=== PATIENT | male | born 1940 | race Caucasian/White ===

== ENCOUNTER → 2017-04-20 | Outpatient (CLI) | payer MEDICARE, OTHER ==
[2017-04-20 11:29] LABS: HCT 40.5 % (39.0-53.0); HGB 13.8 gm/dL (13.0-17.5); MCH 30.3 pg (25.0-35.0); Mean Platelet Volume 7.2; Platelet Count 260 k/uL (150-450); RBC 4.55 m/uL (4.30-5.90); RDW 13.2 % (11.5-15.5); WBC 11.3 k/uL (3.8-10.6)
[2017-04-20 11:59] LABS: Anion Gap 10 mmol/L; Blood Urea Nitrogen 21 mg/dL (9-20); Carbon Dioxide 31 mmol/L (22-30); Chloride 100 mmol/L (98-107); Sodium 141 mmol/L (137-145)
== END | disposition home or self-care (01) ==
LOC: LABPAT 10:47
PROVIDERS: ATTEND Internal Medicine Interventional Cardiology
DX: Z01.812 Encounter for preprocedural laboratory examination (principal); R07.9 Chest pain, unspecified
CPT/HCPCS: 80051; 82565; 84520; 85027

== ENCOUNTER 2017-04-28 06:06 | Day surgery (SDC) | payer MEDICARE, OTHER ==
[2017-04-25 10:58] VITALS: BMI 30.5
[2017-04-28] MEDS ORDERED: ALPRAZolam 0.5 MG TAB PO PRN (06:22)
[2017-04-28] MEDS ORDERED: NITROGLYCERIN SL TABS 0.4 MG TAB SUBLINGUAL PRN (06:22)
[2017-04-28] MEDS ORDERED: ASPIRIN 325 MG TAB PO STA (06:22)
[2017-04-28] MEDS ORDERED: SODIUM CHLORIDE 0.9% 1,000 ML in EMPTY BAG 1 BAG IV ONE (06:22)
[2017-04-28] MEDS ORDERED: ALPRAZolam 0.25 MG TAB PO PRN (06:22)
[2017-04-28] MEDS ORDERED: ATORVASTATIN 80 MG TAB PO STA (06:22)
[2017-04-28 06:45] VITALS: PULSE 49; TEMP 98.2
[2017-04-28] MEDS ORDERED: IV FLUID CONTINUATION 1,000 ML IV ONE (08:11)
[2017-04-28] MEDS ORDERED: MIDAZOLAM 2 MG/2 ML VIAL IV ONE (08:15)
[2017-04-28] MEDS ORDERED: LIDOCAINE 2% INJ 20 MG/ML SQ ONE ×2 (08:20→08:31)
[2017-04-28] MEDS: VERAPAMIL SYRINGE (5 MG/10 ML) INTRAARTER ONE ×2 (08:22→08:30)
[2017-04-28] MEDS ORDERED: IOHEXOL 350 MG/ML 125ML BOTTLE INJ ONE (08:57)
[2017-04-28] MEDS ORDERED: RX INFO: IV CONTRAST WAS GIVEN 1 EACH MISC MISCELLANE PRN (09:02)
[2017-04-28] MEDS ORDERED: SODIUM CHLORIDE 0.9% 1,000 ML IV SCH (09:15)
--- NOTE | 2017-04-28 09:45 | CC ---
CARDIAC CATHETERIZATION REPORT DATE OF SERVICE: 04/28/2017 PERFORMING PHYSICIAN: Harinder Hurley MD, confectionery cooker. PROCEDURE PERFORMED: Selective right and left coronary angiogram. INDICATION: This is a pleasant 77-year-old gentleman who was experiencing chest discomfort and underwent myocardial perfusion imaging stress test showed ischemia. In view of that, a heart catheterization was recommended. APPROACH: 1. Right radial artery. 2. Right common femoral artery. COMPLICATION: None. LEVEL OF SEDATION: Moderate with sedation length of 38 minutes. 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 Initially I cannulated the right radial artery, but I was unable to access the heart from the right radial artery in view of the severe tortuosity. At that point, I did abort the radial procedure and I accessed the right common femoral artery. I did place a 6-Pakistani sheath in the right common femoral artery. After that, I did selective right and left coronary angiogram using JR4 and JL6 catheter. The procedure was completed without any complication. SELECTIVE CORONARY ANGIOGRAM: 1. The RCA is a large caliber vessel and it is a dominant vessel. The proximal RCA appeared to be angiographically normal. The mid RCA is normal as well. The RCA distally has a plaque about 30%. It is calcified plaque. The RCA distally bifurcates into PDA and PLV branches. The PDA branch has mild disease only and the PLV branch is angiographically normal. 2. The left main is angiographically normal. It bifurcates into the left circumflex and left anterior descending artery. 3. The left circumflex is a large caliber vessel and it is a nondominant vessel. The left circumflex system is angiographically normal. 4. Left anterior descending artery; the proximal LAD has mild eccentric plaque about 30%. The mid LAD has a plaque about 30% to 40% by the bifurcation of a large diagonal branch. The LAD distally is angiographically normal. 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 POSTPROCEDURE MANAGEMENT: Medical treatment. MMODL / IJN: [id number] /
[2017-04-28 09:50] VITALS: RESP 18
[2017-04-28] MEDS ORDERED: hydrALAZINE HCL 20 MG/ML 1 ML VIAL IVP STA (12:38)
[2017-04-28] MEDS ORDERED: ACETAMINOPHEN TAB 500 MG TAB PO STA (14:29)
[2017-04-28 15:39] VITALS: BP 160/72
== END 2017-04-28 16:06 | disposition home or self-care (01) ==
LOC: CATHCVL 06:06
PROVIDERS: ATTEND Internal Medicine Interventional Cardiology
DX: R94.39 Abnormal result of other cardiovascular function study (principal); R07.89 Other chest pain; I25.10 Atherosclerotic heart disease of native coronary artery without angina pectoris; I10 Essential (primary) hypertension; I48.0 Paroxysmal atrial fibrillation; E78.5 Hyperlipidemia, unspecified; R00.1 Bradycardia, unspecified; I70.0 Atherosclerosis of aorta; Z79.899 Other long term (current) drug therapy; Z88.2 Allergy status to sulfonamides; Z79.01 Long term (current) use of anticoagulants
CPT/HCPCS: 93454; 84132; C1894 ×3; C1769 ×3; J2001; J2250; J0360; J1644; Q9967

== ENCOUNTER → 2018-02-21 | Outpatient (CLI) | payer MEDICARE, OTHER ==
[2018-02-21 10:50] LABS: Basophils % (A) 0 %; Eosinophils # (A) 0.2 k/uL (0-0.7); Eosinophils % (A) 3 %; HCT 40.9 % (39.0-53.0); HGB 13.5 gm/dL (13.0-17.5); Lymphocytes # (A) 2.2 k/uL (1.0-4.8); Lymphocytes % (A) 28 %; MCH 29.8 pg (25.0-35.0); MCHC 32.9 g/dL (31.0-37.0); MCV 90.4 fL (80.0-100.0); Monocytes # (A) 0.4 k/uL (0-1.0); Monocytes % (A) 5 %; Neutrophils # (A) 4.9 k/uL (1.3-7.7); Neutrophils % (A) 62 %; Platelet Count 244 k/uL (150-450); RBC 4.52 m/uL (4.30-5.90); RDW 13.7 % (11.5-15.5); WBC 7.9 k/uL (3.8-10.6)
[2018-02-21 16:39] LABS: Albumin 4.3 g/dL (3.80-4.90); Albumin/Globulin Ratio 3.31 (1.20-2.10); Anion Gap 7.8 mmol/L (4.00-12.00); Calcium 9.3 mg/dL (8.7-10.3); Carbon Dioxide 30.2 mmol/L (21.6-31.8); Globulin 1.3 g/dL (1.6-3.3); Potassium 4.3 mmol/L (3.5-5.5); Total Protein 5.6 g/dL (6.2-8.2)
[2018-02-21 16:48] LABS: T4, Free (Free Thyroxine) 1.3 ng/dL (0.80-1.80)
== END ==
LOC: LABWHC1 09:29
PROVIDERS: ATTEND Internal Medicine
DX: Z00.00 Encounter for general adult medical examination without abnormal findings (principal); E78.00 Pure hypercholesterolemia, unspecified; I10 Essential (primary) hypertension; I47.1 Supraventricular tachycardia; I48.0 Paroxysmal atrial fibrillation; G47.33 Obstructive sleep apnea (adult) (pediatric)
CPT/HCPCS: 36415; 80053; 80061; 84439; 84443; 85025

== ENCOUNTER → 2019-11-05 | Outpatient (CLI) | payer MEDICARE, OTHER ==
[2019-11-05 10:10] LABS: Basophils # (A) 0.1 k/uL (0-0.2); Basophils % (A) 1 %; Eosinophils # (A) 0.3 k/uL (0-0.7); Eosinophils % (A) 4 %; HCT 41.7 % (39.0-53.0); HGB 13.3 gm/dL (13.0-17.5); Lymphocytes # (A) 1.8 k/uL (1.0-4.8); Lymphocytes % (A) 26 %; MCH 29.4 pg (25.0-35.0); MCHC 31.8 g/dL (31.0-37.0); MCV 92.3 fL (80.0-100.0); Mean Platelet Volume 7.5; Monocytes # (A) 0.4 k/uL (0-1.0); Monocytes % (A) 5 %; Neutrophils # (A) 4.3 k/uL (1.3-7.7); Neutrophils % (A) 62 %; Platelet Count 238 k/uL (150-450); RBC 4.52 m/uL (4.30-5.90); RDW 13.1 % (11.5-15.5)
[2019-11-05 17:56] LABS: African American GFR (CKD) 93.2 (60.0-200.0); Albumin 4.2 g/dL (3.80-4.90); Anion Gap 7.5 mmol/L (4.00-12.00); BUN/Creat Ratio 18.89 Ratio (12.00-20.00); Calcium 9.1 mg/dL (8.7-10.3); Carbon Dioxide 31.5 mmol/L (21.6-31.8); Chol/HDL Ratio 3.56; Globulin 1.4 g/dL (1.6-3.3); Non-African American GFR(CKD) 80.4 (60.0-200.0); Total Bilirubin 0.9 mg/dL (0.2-1.2); Total Protein 5.6 g/dL (6.2-8.2)
[2019-11-05 18:04] LABS: T4, Free (Free Thyroxine) 1.1 ng/dL (0.80-1.80)
== END | disposition home or self-care (01) ==
LOC: LABWHC1 08:45
PROVIDERS: ATTEND Internal Medicine
DX: Z00.00 Encounter for general adult medical examination without abnormal findings (principal); I48.91 Unspecified atrial fibrillation; I10 Essential (primary) hypertension
CPT/HCPCS: 36415; 80053; 80061; 84439; 84443; 85025

== ENCOUNTER → 2020-11-03 | Outpatient (CLI) | payer MEDICARE, OTHER ==
[2020-11-03 14:53] LABS: Basophils # (A) 0.04 X 10*3/uL (0.00-0.10); Basophils % (A) 0.5 %; Eosinophils # (A) 0.18 X 10*3/uL (0.04-0.35); Eosinophils % (A) 2.4 %; HCT 39.5 % (39.6-50.0); HGB 13.1 g/dL (13.0-17.0); Lymphocytes # (A) 1.67 X 10*3/uL (0.90-5.00); Lymphocytes % (A) 21.9 %; MCH 31.3 pg (27.0-32.0); MCHC 33.2 g/dL (32.0-37.0); MCV 94.5 fL (80.0-97.0); Mean Platelet Volume 10.8 fL (9.5-12.2); Monocytes # (A) 0.46 X 10*3/uL (0.20-1.00); Neutrophils # (A) 5.25 X 10*3/uL (1.80-7.70); Neutrophils % (A) 68.9 %; Platelet Count 267 X 10*3/uL (140-440); RBC 4.18 X 10*6/uL (4.40-5.60); RDW 14.1 % (11.5-14.5); WBC 7.62 X 10*3/uL (4.50-10.00)
[2020-11-03 15:46] LABS: African American GFR (CKD) 92.5 (60.0-200.0); Albumin 4.1 g/dL (3.80-4.90); Albumin/Globulin Ratio 2.16 (1.60-3.17); Chol/HDL Ratio 3.15; Globulin 1.9 g/dL (1.6-3.3); Non-African American GFR(CKD) 79.8 (60.0-200.0); Potassium 3.9 mmol/L (3.5-5.5); Total Bilirubin 0.8 mg/dL (0.2-1.2)
[2020-11-03 15:54] LABS: Prostate Specific Antigen 2.5 ng/mL (0.0-6.5); T4, Free (Free Thyroxine) 1.1 ng/dL (0.80-1.80)
== END | disposition home or self-care (01) ==
LOC: LABWHC1 08:50
PROVIDERS: ATTEND Internal Medicine
DX: Z00.00 Encounter for general adult medical examination without abnormal findings (principal); Z12.5 Encounter for screening for malignant neoplasm of prostate; I10 Essential (primary) hypertension; E78.5 Hyperlipidemia, unspecified
CPT/HCPCS: 36415; 80053; 80061; 84153; 84439; 84443; 85025

== ENCOUNTER → 2021-11-18 | Outpatient (CLI) | payer MEDICARE, OTHER ==
[2021-11-18 23:31] LABS: ALT 17 U/L (10-49); AST 27 U/L (14-35); African American GFR (CKD) 89.7 (60.0-200.0); Albumin 4.2 g/dL (3.8-4.9); Alkaline Phosphatase 80 U/L (41-126); BUN/Creat Ratio 21.13 Ratio (12.00-20.00); Blood Urea Nitrogen 19.4 mg/dL (9.0-27.0); Calcium 9.4 mg/dL (8.7-10.3); Carbon Dioxide 29.4 mmol/L (20.0-27.5); Chloride 103 mmol/L (96-109); Chol/HDL Ratio 3.12 Ratio; Globulin 1.8 g/dL (1.6-3.3); Glucose 97 mg/dL (70-110); Non-African American GFR(CKD) 77.4 (60.0-200.0); Potassium 4.2 mmol/L (3.5-5.5); Sodium 142 mmol/L (135-145); Total Protein 6.1 g/dL (6.2-8.2)
== END ==
LOC: LABWHC1 15:52
PROVIDERS: ATTEND Internal Medicine
DX: Z00.00 Encounter for general adult medical examination without abnormal findings (principal); I10 Essential (primary) hypertension; E78.5 Hyperlipidemia, unspecified
CPT/HCPCS: 36415; 80053; 80061; 84439; 84443; 85025

== ENCOUNTER 2022-01-10 17:25 | Emergency (ER) | payer MEDICARE, OTHER ==
[2022-01-10 17:32] VITALS: TEMP 98.4
[2022-01-10] MEDS ORDERED: PANTOPRAZOLE 40 MG/10 ML VIAL IVP STA (17:52)
--- NOTE | 2022-01-10 17:59 | ED ---
GI Bleed HPI - General Chief complaint: GI Bleed Stated complaint: Poss GI Bleed Time Seen by Provider: 01/10/22 17:33 Source: patient Mode of arrival: ambulatory Limitations: no limitations - History of Present Illness Initial comments: Patient is a pleasant 81-year-old male presenting to the emergency room with complaints of sudden onset of rectal bleeding with dark red blood and occasional clots earlier this afternoon. He denies any abdominal pain, nausea or vomiting. He is complaining of mild lower back discomfort which he believes bega n today as well. He denies any signs and symptoms of anemia including but not limited to any chest pain, shortness of breath, headache, dizziness, lethargy or weakness. He denies any fevers or chills. He denies any previous episodes of gastrointestinal bleeding. He is on Xarelto for a history of atrial fibrillation which he is taking as prescribed. In addition to atrial fibrillation history is a past medical history significant for degenerative joint disease, hypertension and hyperlipidemia. - Related Data Home Medications Medication Instructions Recorded Confirmed Lovastatin [Mevacor] 20 mg PO DAILY 05/03/15 04/25/17 Vit C/E/Zn/Coppr/Lutein/Zeaxan 1 cap PO BID 01/05/17 04/28/17 [Preservision Areds 2 Softgel] Rivaroxaban [Xarelto] 15 mg PO DAILY 01/08/17 04/25/17 Aspirin 325 mg PO ONCE 04/28/17 04/28/17 Previous Rx's Medication Instructions Recorded amLODIPine [Norvasc] 10 mg PO DAILY #30 tab 01/08/17 hydroCHLOROthiazide [Hydrodiuril] 50 mg PO DAILY #30 tab 01/08/17 lisinopriL [Zestril] 20 mg PO BID #60 tab 01/08/17 Metoprolol Tartrate [Lopressor] 12.5 mg PO DAILY #0 04/28/17 Allergies Allergy/AdvReac Type Severity Reaction Status Date / Time Sulfa (Sulfonamide Allergy Unknown Verified 04/25/17 11:02 Antibiotics) tobramycin Allergy See Comment Verified 04/25/17 11:02 Review of Systems ROS Statement: Those systems with pertinent positive or pertinent negative responses have been documented in the HPI. ROS Other: All systems not noted in ROS Statement are negative. Past Medical History Past Medical History: Atrial Fibrillation, Hyperlipidemia, Hypertension, Sleep Apnea/CPAP/BIPAP History of Any Multi-Drug Resistant Organisms: None Reported Past Surgical History: Orthopedic Surgery Additional Past Surgical History / Comment(s): thumb surgery Past Anesthesia/Blood Transfusion Reactions: No Reported Reaction Past Psychological History: No Psychological Hx Reported Past Alcohol Use History: None Reported Past Drug Use History: None Reported - Past Family History Father Family Medical History: CVA/TIA Additional Family Medical History / Comment(s): heart disease Mother Additional Family Medical History / Comment(s): cardiomyopathy Daughter(s) Family Medical History: Cancer Additional Family Medical History / Comment(s): breast General Exam Limitations: no limitations General appearance: alert, in no apparent distress Head exam: Present: atraumatic, normocephalic, normal inspection Eye exam: Present: normal appearance, PERRL, EOMI. Absent: scleral icterus, conjunctival injection, periorbital swelling ENT exam: Present: normal exam, mucous membranes moist Neck exam: Present: normal inspection, full ROM Respiratory exam: Present: normal lung sounds bilaterally. Absent: respiratory distress, wheezes, rales, rhonchi, stridor Cardiovascular Exam: Present: regular rate, irregular rhythm, normal heart sounds, systolic murmur. Absent: diastolic murmur, rubs, gallop, clicks GI/Abdominal exam: Present: soft, normal bowel sounds. Absent: distended, tenderness, guarding, rebound, rigid Rectal exam: Present: normal inspection, normal rectal tone, heme (+) stool, bloody stool. Absent: black stool, fecal impaction, hemorrhoids, mass, tenderness Extremities exam: Present: normal inspection. Absent: pedal edema, joint swelling Back exam: Present: normal inspection Neurological exam: Present: alert, oriented X3, CN II-XII intact Psychiatric exam: Present: normal affect, normal mood Skin exam: Present: warm, dry, intact, normal color. Absent: rash Course Vital Signs 01/10/22 01/10/22 01/10/22 17:30 18:09 19:03 Temperature 98.4 F Pulse Rate 64 72 78 Respiratory 16 16 18 Rate Blood Pressure 182/67 138/79 192/81 O2 Sat by Pulse 95 98 95 Oximetry 01/10/22 22:16 Temperature Pulse Rate 62 Respiratory 18 Rate Blood Pressure 153/78 O2 Sat by Pulse 95 Oximetry - Consultations Consultation #1: Spoke with Dr. Klein regarding patient presentation and laboratory studies along with diagnostic imaging results. He is declining consultation at this time and deferring to GI services for further evaluation and recommends transfer out for GI services. Time: 19:45 Consultation #2: Spoke with [facility] regarding possible transfer for GI services at this time no beds are available and currently holding 32 patients in the waiting room Time: 19:55 Consultation #3: Case discussed with Dr. Sousa, physician at [facility] excepting of general inpatient admission with GI service consult. No further orders obtained at this time. Patient currently stable will prepare for transfer. Time: 21:52 Medical Decision Making - Medical Decision Making 81-year-old male presenting to the emergency room with complaints of bloody stools with clots which began earlier today on blood thinners. No previous history of GI bleeds. Currently on Xarelto for atrial fibrillation. Digital rectal exam reveals maroon stools consistent with lower GI bleed. GI services not currently available at this facility will start workup for lower gastrointestinal bleeding including CT of the abdomen and pelvis with contrast, EKG CBC, CMP, lactic acid, coags, along with type and cross. Currently hemodynamically stable no indication for IV fluids. Will give dose of IV Prot aniceto and monitor. Stable focal blood positive, CBC shows mild leukocytosis with a WBC 11.8 hemoglobin normal. CMP reveals a slightly elevated BUN at 25 creatinine normal no electrolyte derangement. Lactic acid normal, clotting times normal. Patient tolerated Protonix well without any side effects. Computed tomography scan of the abdomen with contrast image interpreted by me showing no evidence of free fluid in the abdomen or inflammation; no obvious signs of bleeding source. Radiologist report of computed tomography scan also reviewed. In the absence of diverticulitis, lower GI abscess or other obvious signs of lower GI bleed along with laboratory studies and stool presentation high proba bility for upper GI bleed. Case presented to Dr. Klein on for general surgery regarding possible consultation for evaluation; due to likelihood of upper GI bleed he is deferring to transfer for GI services. [facility] without availability to receive nontrauma transfer at this time [facility] and [place], both requiring COVID testing prior to evaluation for bed availability will obtain Covid test; Covid negative will proceed with potential transfer to [facility]. Transfer accepted by [facility] for admission to Gen. medical floor with GI services consult by Dr. Sousa. Will arrange transfer. Patient and family updated regarding plan of care. Patient continues to remain hemodynamically stable. Case discussed with Dr. Stern. - Lab Data Result diagrams: 01/10/22 17:53 01/10/22 17:53 Lab Results 01/10/22 01/10/22 01/10/22 Range/Units 17:53 17:53 17:53 WBC 11.8 H (3.8-10.6) k/uL RBC 4.69 (4.30-5.90) m/uL Hgb 14.3 (13.0-17.5) gm/dL Hct 42.0 (39.0-53.0) % MCV 89.6 (80.0-100.0) fL MCH 30.6 (25.0-35.0) pg MCHC 34.1 (31.0-37.0) g/dL RDW 13.6 (11.5-15.5) % Plt Count 251 (150-450) k/uL MPV 8.3 Neutrophils % 80 % Lymphocytes % 13 % Monocytes % 4 % Eosinophils % 1 % Basophils % 1 % Neutrophils # 9.4 H (1.3-7.7) k/uL Lymphocytes # 1.6 (1.0-4.8) k/uL Monocytes # 0.5 (0-1.0) k/uL Eosinophils # 0.1 (0-0.7) k/uL Basophils # 0.1 (0-0.2) k/uL PT 11.0 (9.0-12.0) sec INR 1.0 (<1.2) APTT 28.6 (22.0-30.0) sec Sodium (137-145) mmol/L Potassium (3.5-5.1) mmol/L Chloride (98-107) mmol/L Carbon Dioxide (22-30) mmol/L Anion Gap mmol/L BUN (9-20) mg/dL Creatinine (0.66-1.25) mg/dL Est GFR (CKD-EPI)AfAm (>60 ml/min/1.73 sqM) Est GFR (CKD-EPI)NonAf (>60 ml/min/1.73 sqM) Glucose (74-99) mg/dL Plasma Lactic Acid Waylon (0.7-2.0) mmol/L Calcium (8.4-10.2) mg/dL Total Bilirubin (0.2-1.3) mg/dL AST (17-59) U/L ALT (4-49) U/L Alkaline Phosphatase (38-126) U/L Troponin I (0.000-0.034) ng/mL Total Protein (6.3-8.2) g/dL Albumin (3.5-5.0) g/dL Stool Occult Blood Positive (Negative) Coronavirus (PCR) (Not Detectd) Blood Type Blood Type Confirm Blood Type Recheck Bld Type Recheck Status Antibody Screen Spec Expiration Date 01/10/22 01/10/22 01/10/22 Range/Units 17:53 17:53 17:53 WBC (3.8-10.6) k/uL RBC (4.30-5.90) m/uL Hgb (13.0-17.5) gm/dL Hct (39.0-53.0) % MCV (80.0-100.0) fL MCH (25.0-35.0) pg MCHC (31.0-37.0) g/dL RDW (11.5-15.5) % Plt Count (150-450) k/uL MPV Neutrophils % % Lymphocytes % % Monocytes % % Eosinophils % % Basophils % % Neutrophils # (1.3-7.7) k/uL Lymphocytes # (1.0-4.8) k/uL Monocytes # (0-1.0) k/uL Eosinophils # (0-0.7) k/uL Basophils # (0-0.2) k/uL PT (9.0-12.0) sec INR (<1.2) APTT (22.0-30.0) sec Sodium 140 (137-145) mmol/L Potassium 4.0 (3.5-5.1) mmol/L Chloride 104 (98-107) mmol/L Carbon Dioxide 26 (22-30) mmol/L Anion Gap 10 mmol/L BUN 25 H (9-20) mg/dL Creatinine 0.92 (0.66-1.25) mg/dL Est GFR (CKD-EPI)AfAm 89 (>60 ml/min/1.73 sqM) Est GFR (CKD-EPI)NonAf 77 (>60 ml/min/1.73 sqM) Glucose 116 H (74-99) mg/dL Plasma Lactic Acid Waylon 1.2 (0.7-2.0) mmol/L Calcium 9.0 (8.4-10.2) mg/dL Total Bilirubin 0.7 (0.2-1.3) mg/dL AST 38 (17-59) U/L ALT 23 (4-49) U/L Alkaline Phosphatase 88 (38-126) U/L Troponin I 0.014 (0.000-0.034) ng/mL Total Protein 6.7 (6.3-8.2) g/dL Albumin 4.5 (3.5-5.0) g/dL Stool Occult Blood (Negative) Coronavirus (PCR) (Not Detectd) Blood Type Blood Type Confirm Blood Type Recheck Bld Type Recheck Status Antibody Screen Spec Expiration Date 01/10/22 01/10/22 01/10/22 Range/Units 17:53 18:05 18:10 WBC (3.8-10.6) k/uL RBC (4.30-5.90) m/uL Hgb (13.0-17.5) gm/dL Hct (39.0-53.0) % MCV (80.0-100.0) fL MCH (25.0-35.0) pg MCHC (31.0-37.0) g/dL RDW (11.5-15.5) % Plt Count (150-450) k/uL MPV Neutrophils % % Lymphocytes % % Monocytes % % Eosinophils % % Basophils % % Neutrophils # (1.3-7.7) k/uL Lymphocytes # (1.0-4.8) k/uL Monocytes # (0-1.0) k/uL Eosinophils # (0-0.7) k/uL Basophils # (0-0.2) k/uL PT (9.0-12.0) sec INR (<1.2) APTT (22.0-30.0) sec Sodium (137-145) mmol/L Potassium (3.5-5.1) mmol/L Chloride (98-107) mmol/L Carbon Dioxide (22-30) mmol/L Anion Gap mmol/L BUN (9-20) mg/dL Creatinine (0.66-1.25) mg/dL Est GFR (CKD-EPI)AfAm (>60 ml/min/1.73 sqM) Est GFR (CKD-EPI)NonAf (>60 ml/min/1.73 sqM) Glucose (74-99) mg/dL Plasma Lactic Acid Waylon (0.7-2.0) mmol/L Calcium (8.4-10.2) mg/dL Total Bilirubin (0.2-1.3) mg/dL AST (17-59) U/L ALT (4-49) U/L Alkaline Phosphatase (38-126) U/L Troponin I (0.000-0.034) ng/mL Total Protein (6.3-8.2) g/dL Albumin (3.5-5.0) g/dL Stool Occult Blood (Negative) Coronavirus (PCR) (Not Detectd) Blood Type O Positive Blood Type Confirm O Positive Blood Type Recheck No Previous Record Bld Type Recheck Status CABO Indicated Antibody Screen NEGATIVE Spec Expiration Date 01/13/2022 - 235201/10/22 Range/Units 20:39 WBC (3.8-10.6) k/uL RBC (4.30-5.90) m/uL Hgb (13.0-17.5) gm/dL Hct (39.0-53.0) % MCV (80.0-100.0) fL MCH (25.0-35.0) pg MCHC (31.0-37.0) g/dL RDW (11.5-15.5) % Plt Count (150-450) k/uL MPV Neutrophils % % Lymphocytes % % Monocytes % % Eosinophils % % Basophils % % Neutrophils # (1.3-7.7) k/uL Lymphocytes # (1.0-4.8) k/uL Monocytes # (0-1.0) k/uL Eosinophils # (0-0.7) k/uL Basophils # (0-0.2) k/uL PT (9.0-12.0) sec INR (<1.2) APTT (22.0-30.0) sec Sodium (137-145) mmol/L Potassium (3.5-5.1) mmol/L Chloride (98-107) mmol/L Carbon Dioxide (22-30) mmol/L Anion Gap mmol/L BUN (9-20) mg/dL Creatinine (0.66-1.25) mg/dL Est GFR (CKD-EPI)AfAm (>60 ml/min/1.73 sqM) Est GFR (CKD-EPI)NonAf (>60 ml/min/1.73 sqM) Glucose (74-99) mg/dL Plasma Lactic Acid Waylon (0.7-2.0) mmol/L Calcium (8.4-10.2) mg/dL Total Bilirubin (0.2-1.3) mg/dL AST (17-59) U/L ALT (4-49) U/L Alkaline Phosphatase (38-126) U/L Troponin I (0.000-0.034) ng/mL Total Protein (6.3-8.2) g/dL Albumin (3.5-5.0) g/dL Stool Occult Blood (Negative) Coronavirus (PCR) Not Detected (Not Detectd) Blood Type Blood Type Confirm Blood Type Recheck Bld Type Recheck Status Antibody Screen Spec Expiration Date - EKG Data EKG Comments: EKG completed at 1803 interpreted by me shows sinus rhythm with frequent PVCs, left axis deviation, left ventricular hypertrophy, ventricular rate 67 bpm, [place] interval 159 ms, QRS duration 109 ms, QT/QTC 412/427 ms, PRT axes 39, -43, 63 - Radiology Data Radiology results: report reviewed, image reviewed CT of the abdomen and pelvis with contrast report per radiologist enlarged prostate. Mild colonic diverticulosis without diverticulitis. No mesenteric edema. No ascites or free air. No signs of bowel obstruction. Delayed images show normal renal excretion of contrast dye. Disposition Clinical Impression: Gastrointestinal hemorrhage Disposition: OTHER INSTITUTION NOT DEFINED Condition: Stable Is patient prescribed a controlled substance at d/c from ED?: No Referrals: Tirso Barber MD [Primary Care Provider] - 1-2 days Time of Disposition: 22:30 - Out of Hospital Transfer - Req. Specs Out of Hospital Transfer - Requested Specifics: Other Non-Acute (Transfer to [facility] accepting physician Dr. Sousa)
[2022-01-10 18:05] LABS: Basophils # (A) 0.1 k/uL (0-0.2); Basophils % (A) 1 %; Eosinophils # (A) 0.1 k/uL (0-0.7); Eosinophils % (A) 1 %; HGB 14.3 gm/dL (13.0-17.5); Lymphocytes # (A) 1.6 k/uL (1.0-4.8); Lymphocytes % (A) 13 %; MCH 30.6 pg (25.0-35.0); MCHC 34.1 g/dL (31.0-37.0); MCV 89.6 fL (80.0-100.0); Mean Platelet Volume 8.3; Monocytes # (A) 0.5 k/uL (0-1.0); Monocytes % (A) 4 %; Neutrophils # (A) 9.4 k/uL (1.3-7.7); Neutrophils % (A) 80 %; Platelet Count 251 k/uL (150-450); RBC 4.69 m/uL (4.30-5.90); RDW 13.6 % (11.5-15.5); WBC 11.8 k/uL (3.8-10.6)
[2022-01-10 18:18] LABS: Albumin 4.5 g/dL (3.5-5.0); Total Bilirubin 0.7 mg/dL (0.2-1.3); Total Protein 6.7 g/dL (6.3-8.2)
[2022-01-10 18:38] LABS: Partial Thromboplastin Time 28.6 sec (22.0-30.0)
[2022-01-10 19:07] VITALS: RESP 18
--- NOTE | 2022-01-10 19:21 | CT ---
EXAMINATION TYPE: CT abdomen pelvis w con DATE OF EXAM: 01/10/2022 COMPARISON: None HISTORY: r/o GI bleed CT DLP: 1520.3 mGycm Automated exposure control for dose reduction was used. CONTRAST: Performed with IV Contrast, patient injected with 100ml mL of Isovue 300. Images obtained from the diaphragm to the floor the pelvis with the IV contrast. The lung bases are clear of infiltrate. No pleural effusion. Heart size is normal. No pericardial eff usion. Liver spleen pancreas and stomach appear intact. The bile duct are not dilated. Gallbladder ap pears normal. There is no adrenal mass. Kidneys show satisfactory contrast opacification. No hydronephrosis. Ureter s are not dilated. There is no retroperitoneal adenopathy. The bladder distends smoothly. There is en larged prostate that measures 6.5 cm. No inguinal hernia. No pelvic mass. No free fluid in the pelvis . There is no mesenteric edema. No ascites or free air. No sign of a bowel obstruction. There is second-degree L5-S1 spondylolisthesis with severe narrowing of the L5-S1 disc space. No lumb ar compression fracture. Bony pelvis is intact. The hip joints are intact. Sacroiliac joints are inta ct. Appendix not seen. No site of thickened appendix. Delayed images show normal renal excretion. IMPRESSION: Enlarged prostate. Mild colonic diverticulosis without diverticulitis.
[2022-01-11 02:25] LABS: Basophils # (A) 0.1 k/uL (0-0.2); Basophils % (A) 1 %; Eosinophils # (A) 0.2 k/uL (0-0.7); Eosinophils % (A) 3 %; HCT 39.7 % (39.0-53.0); HGB 13.5 gm/dL (13.0-17.5); Lymphocytes # (A) 2.3 k/uL (1.0-4.8); Lymphocytes % (A) 25 %; MCH 30.4 pg (25.0-35.0); MCHC 33.9 g/dL (31.0-37.0); MCV 89.6 fL (80.0-100.0); Mean Platelet Volume 8.3; Monocytes # (A) 0.4 k/uL (0-1.0); Monocytes % (A) 5 %; Neutrophils # (A) 5.8 k/uL (1.3-7.7); Neutrophils % (A) 64 %; Platelet Count 241 k/uL (150-450); RBC 4.43 m/uL (4.30-5.90); RDW 13.7 % (11.5-15.5); WBC 9.1 k/uL (3.8-10.6)
[2022-01-11 02:30] VITALS: BP 130/88; PULSE 72
== END 2022-01-11 02:30 | disposition other institution (70) ==
LOC: EC 17:25
DX: K92.2 Gastrointestinal hemorrhage, unspecified (principal); I48.91 Unspecified atrial fibrillation; I10 Essential (primary) hypertension; E78.5 Hyperlipidemia, unspecified; Z88.2 Allergy status to sulfonamides; Z88.8 Allergy status to other drugs, medicaments and biological substances; Z79.82 Long term (current) use of aspirin; Z79.899 Other long term (current) drug therapy; Z20.822 Contact with and (suspected) exposure to COVID-19
CPT/HCPCS: 99285 ×2; 96374 ×2; 36415 ×2; 93005; 86900; 86901; 80053; 83605; 84484; 85025 ×2; 85610; 85730; 86850; 82272; 87635; 74177; C9113; Q9967

== ENCOUNTER → 2022-01-15 | Outpatient (CLI) | payer MEDICARE, OTHER ==
[2022-01-15 18:42] LABS: Basophils # (A) 0.05 X 10*3/uL (0.00-0.10); Basophils % (A) 0.5 %; Eosinophils # (A) 0.33 X 10*3/uL (0.04-0.35); Eosinophils % (A) 3.5 %; HCT 32.8 % (39.6-50.0); HGB 10.4 g/dL (13.0-17.0); Immature Grans, Automated 0.3 %; Lymphocytes # (A) 2.46 X 10*3/uL (0.90-5.00); MCH 29.7 pg (27.0-32.0); MCHC 31.7 g/dL (32.0-37.0); MCV 93.7 fL (80.0-97.0); Mean Platelet Volume 11.2 fL (9.5-12.2); Monocytes # (A) 0.64 X 10*3/uL (0.20-1.00); Monocytes % (A) 6.8 %; NRBC Per 100 WBC 0 /100 WBCS (0.0-0.0); Neutrophils # (A) 5.94 X 10*3/uL (1.80-7.70); Neutrophils % (A) 62.9 %; Platelet Count 251 X 10*3/uL (140-440); RDW 14.8 % (11.5-14.5); WBC 9.45 X 10*3/uL (4.50-10.00)
== END | disposition home or self-care (01) ==
LOC: LABWHC1 10:27
PROVIDERS: ATTEND Physical Medicine & Rehabilitation
DX: K62.5 Hemorrhage of anus and rectum (principal)
CPT/HCPCS: 36415; 85025

== ENCOUNTER → 2022-02-10 | Outpatient (CLI) | payer MEDICARE, OTHER ==
[2022-02-10 14:44] LABS: Basophils # (A) 0.05 X 10*3/uL (0.00-0.10); Basophils % (A) 0.7 %; Eosinophils # (A) 0.21 X 10*3/uL (0.04-0.35); Eosinophils % (A) 2.8 %; HCT 35.9 % (39.6-50.0); HGB 11.7 g/dL (13.0-17.0); Immature Grans, Automated 0.3 %; Lymphocytes # (A) 1.46 X 10*3/uL (0.90-5.00); Lymphocytes % (A) 19.6 %; MCH 30.6 pg (27.0-32.0); MCHC 32.6 g/dL (32.0-37.0); Mean Platelet Volume 10.7 fL (9.5-12.2); Monocytes % (A) 5.4 %; NRBC Per 100 WBC 0 /100 WBCS (0.0-0.0); Neutrophils % (A) 71.2 %; Platelet Count 268 X 10*3/uL (140-440); RBC 3.82 X 10*6/uL (4.40-5.60); RDW 14.3 % (11.5-14.5); WBC 7.44 X 10*3/uL (4.50-10.00)
== END | disposition home or self-care (01) ==
LOC: LABWHC1 09:41
PROVIDERS: ATTEND Internal Medicine
DX: D62 Acute posthemorrhagic anemia (principal)
CPT/HCPCS: 36415; 85025

== ENCOUNTER → 2022-09-17 | Outpatient (CLI) | payer MEDICARE, OTHER ==
[2022-09-17 21:07] LABS: Basophils # (A) 0.04 X 10*3/uL (0.00-0.10); Basophils % (A) 0.4 %; Eosinophils # (A) 0.19 X 10*3/uL (0.04-0.35); HCT 39.7 % (39.6-50.0); HGB 13.4 d/dL (13.0-17.0); Lymphocytes # (A) 1.99 X 10*3/uL (0.90-5.00); Lymphocytes % (A) 21.2 %; MCH 31.3 pg (27.0-32.0); MCHC 33.8 d/dL (32.0-37.0); MCV 92.8 FL (80.0-97.0); Mean Platelet Volume 11.3 FL (9.5-12.2); Monocytes # (A) 0.62 X 10*3/uL (0.20-1.00); Monocytes % (A) 6.6 %; NRBC Per 100 WBC 0 X 10*3/uL (0.00-0.01); Neutrophils # (A) 6.53 X 10*3/uL (1.80-7.70); Neutrophils % (A) 69.6 %; Platelet Count 247 X 10*3/uL (140-440); RBC 4.28 X 10*6/uL (4.40-5.60); WBC 9.39 X 10*3/uL (4.50-10.00)
[2022-09-17 21:14] LABS: % Iron Saturation 30.38 (15.00-50.00); ALT 26 U/L (10-49); AST 47 U/L (14-35); Albumin 4.4 d/dL (3.8-4.9); Albumin/Globulin Ratio 2.44 Ratio (1.60-3.17); Alkaline Phosphatase 86 U/L (41-126); BUN/Creat Ratio 16.67 Ratio (12.00-20.00); Calcium 9.7 mg/dL (8.7-10.3); Carbon Dioxide 29.5 mmol/L (21.6-31.8); Chloride 101 mmol/L (96-109); Ferritin 54.5 ng/mL (22.0-322.0); Globulin 1.8 d/dL (1.6-3.3); Glucose 96 mg/dL (70-110); Iron 96 UG/DL (65-175); Potassium 4.4 mmol/L (3.5-5.5); Sodium 141 mmol/L (135-145); Total Bilirubin 0.4 mg/dL (0.3-1.2); Total Iron Binding Capacity 316 UG/DL (228-460); Total Protein 6.2 d/dL (6.2-8.2)
== END | disposition home or self-care (01) ==
LOC: LABWHC1 13:58
PROVIDERS: ATTEND Internal Medicine
DX: Z00.00 Encounter for general adult medical examination without abnormal findings (principal); D50.9 Iron deficiency anemia, unspecified
CPT/HCPCS: 36415; 80053; 82728; 83540; 83550; 85025

== ENCOUNTER → 2023-02-04 | Outpatient (CLI) | payer MEDICARE, OTHER ==
[2023-02-04 15:51] LABS: Basophils # (A) 0.07 X 10*3/uL (0.00-0.10); Eosinophils % (A) 5.6 %; HCT 41.9 % (39.6-50.0); HGB 13.9 g/dL (13.0-17.0); Lymphocytes # (A) 2.17 X 10*3/uL (0.90-5.00); Lymphocytes % (A) 30.6 %; MCH 32.2 pg (27.0-32.0); MCHC 33.2 g/dL (32.0-37.0); Mean Platelet Volume 11.4 FL (9.5-12.2); Monocytes # (A) 0.49 X 10*3/uL (0.20-1.00); Monocytes % (A) 6.9 %; NRBC Per 100 WBC 0 X 10*3/uL (0.00-0.01); Neutrophils # (A) 3.95 X 10*3/uL (1.80-7.70); Neutrophils % (A) 55.8 %; Platelet Count 238 X 10*3/uL (140-440); RBC 4.32 X 10*6/uL (4.40-5.60); RDW 13.8 % (11.5-14.5); WBC 7.09 X 10*3/uL (4.50-10.00)
[2023-02-04 16:27] LABS: ALT 23 U/L (10-49); AST 35 U/L (14-35); Albumin 4.1 g/dL (3.8-4.9); Albumin/Globulin Ratio 2.28 Ratio (1.60-3.17); Alkaline Phosphatase 82 U/L (41-126); Blood Urea Nitrogen 16.8 mg/dL (9.0-27.0); Calcium 9.5 mg/dL (8.7-10.3); Carbon Dioxide 28.7 mmol/L (21.6-31.8); Chloride 104 mmol/L (96-109); Chol/HDL Ratio 3.33 Ratio; Globulin 1.8 g/dL (1.6-3.3); Glucose 121 mg/dL (70-110); LDL Cholesterol,Calculated 88.5 mg/dL (0.0-131.0); Magnesium 1.7 mg/dL (1.5-2.4); Potassium 4.3 mmol/L (3.5-5.5); Sodium 143 mmol/L (135-145); Total Bilirubin 0.7 mg/dL (0.3-1.2); Total Protein 5.9 g/dL (6.2-8.2); VLDL Calculation 10.84 mg/dL (5.00-40.00)
== END | disposition home or self-care (01) ==
LOC: LABWHC1 08:08
PROVIDERS: ATTEND Internal Medicine Interventional Cardiology
DX: I10 Essential (primary) hypertension (principal); I48.91 Unspecified atrial fibrillation
CPT/HCPCS: 36415; 80053; 80061; 83735; 84443; 85025